=== PATIENT | male | born 1950 | race Caucasian/White ===

== ENCOUNTER 2018-01-10 17:12 | Inpatient (IN) | payer MEDICARE, MEDICAID ==
[2018-01-10] MEDS ORDERED: ACIDOPHILUS LAC1 CAP PO (18:10)
[2018-01-10] MEDS ORDERED: ROCALTROL0.5 MCG PO (18:15)
[2018-01-10] MEDS ORDERED: COMBIVENT RESPIM4 GM INH (18:17)
[2018-01-10] MEDS ORDERED: DILANTIN100 MG PO (18:19)
[2018-01-10] MEDS ORDERED: DILANTIN50 MG PO (18:19)
[2018-01-10] MEDS ORDERED: COLACE100 MG PO (18:21)
[2018-01-10] MEDS ORDERED: KEPPRA250 MG PO (18:24)
[2018-01-10] MEDS ORDERED: LANTUS SOL100 UNIT/1 (18:26)
[2018-01-10] MEDS ORDERED: MIRALAX17 GM PO (18:27)
[2018-01-10] MEDS ORDERED: NORVASC10 MG PO (18:27)
[2018-01-10] MEDS ORDERED: TOPROL XL25 MG PO (18:33)
[2018-01-10] MEDS ORDERED: ULTRAM50 MG PO (18:40)
[2018-01-11] MEDS ORDERED: NOVOLOG100 U/M1 SC (01:08)
[2018-01-30 14:55] VITALS: BMI 22.3
== END 2018-01-10 20:26 | disposition short-term general hospital (02) | DRG 884 ==
LOC: D.PSYCH 17:12
PROVIDERS: Psychiatry & Neurology Psychiatry
DX: F03.90 Unspecified dementia, unspecified severity, without behavioral disturbance, psychotic disturbance, mood disturbance, and anxiety (principal)

== ENCOUNTER 2018-01-10 19:57 | Inpatient (IN) | payer MEDICARE ==
[~2018-01-10] VITALS: Ht 162.6 cm; Wt 63.1 kg
[~2018-01-10 19:57] MED LIST: ACIDOPHILUS LAC1 CAP PO; COLACE100 MG PO; COMBIVENT RESPIM4 GM INH; DILANTIN100 MG PO; DILANTIN50 MG PO; KEPPRA250 MG PO; LANTUS SOL100 UNIT/1; MIRALAX17 GM PO; NORVASC10 MG PO; ROCALTROL0.5 MCG PO; TOPROL XL25 MG PO; ULTRAM50 MG PO
[2018-01-10 20:58] LABS: BASOPHILS 1.7 % (0-2); EOSINOPHILS 1.4 % (0-7); HEMATOCRIT 30.5 % (42.0-54.0); HEMOGLOBIN 9.8 g/dL (13.5-17.5); IMMATURE GRANULOCYTES 0.6 % (0-5); LYMPHOCYTES 40.6 % (15-50); MCH 30.6 pg (26.0-34.0); MCHC 32.1 g/dL (31.0-37.0); MCV 95.3 fL (80.0-100.0); MEAN PLATELET VOLUME 9.5 fL (7.4-10.4); MONOCYTES 10.4 % (2-11); NEUTROPHILS 45.3 % (40-80); RDW 15.5 % (11.5-14.5); WBC 6.6 10x3/uL (4.8-10.8)
[2018-01-10 21:00] LABS: PLATELET COUNT 248 10x3/uL (130-400)
[2018-01-10 21:06] LABS: APTT 28.6 SECONDS (22.8-39.4); INR 1.1 (0.85-1.17); PROTIME 13.8 SECONDS (11.6-15.0)
[2018-01-10 21:07] LABS: D-DIMER-QUANTITATIVE 0.7 ug/mLFEU (0.20-0.54)
[2018-01-10 21:35] LABS: ALBUMIN 3.1 g/dL (3.4-5.0); ALKALINE PHOSPHATASE 158 U/L (46-116); ALT (SGPT) 17 U/L (10-68); BILIRUBIN - TOTAL 0.15 mg/dL (0.2-1.3); CALC OSMOLALITY 317 mosm/kg (275-300); CARBON DIOXIDE 18.6 mmol/L (21.0-32.0); CKMB 0.8 U/L (0.0-3.6); CREATINE KINASE 127 UL (21-232); CREATININE - SERUM 3.7 mg/dL (0.6-1.3); GLUCOSE 178 mg/dL (74-106); MAGNESIUM - SERUM 2.4 mg/dL (1.8-2.4); POTASSIUM - SERUM 4.1 mmol/L (3.5-5.1); PRO BNP 719 pg/mL (0-125); PROTEIN - SERUM 7.5 g/dL (6.4-8.2); SODIUM 152 mmol/L (136-145); UREA NITROGEN 47 mg/dL (7-18); eGFR NON AFRICAN AMERICAN 18 mL/min (90-120)
[2018-01-10 21:36] LABS: TROPONIN-I < 0.017 ng/mL (0.000-0.060)
[2018-01-10 21:38] LABS: CHLORIDE - SERUM 117 mmol/L (98-107)
[2018-01-11] VITALS (20 sets, daily range): BP systolic 115–191; BP diastolic 39–116; BMI 23.4; BMI 23.3
[2018-01-11] MEDS ORDERED: NOVOLOG100 U/M1 SC (01:08)
[2018-01-12] VITALS (24 sets, daily range): BP systolic 121–174; BP diastolic 66–112; Ht 162.6 cm; Wt 63.1 kg
[2018-01-12 06:43] LABS: CALCIUM 8.9 mg/dL (8.5-10.1); CARBON DIOXIDE 17.2 mmol/L (21.0-32.0); CREATININE - SERUM 3.1 mg/dL (0.6-1.3); PHENYTOIN (DILANTIN) 37.1 ug/mL (10.0-20.0); POTASSIUM - SERUM 3.9 mmol/L (3.5-5.1)
[2018-01-12 06:46] LABS: ANION GAP 21.7 mmol/L (8-16)
[2018-01-12 15:43] LABS: ERYTHROCYTE SEDIMENTATION RATE 84 mm/hr (0-20)
[2018-01-13] VITALS (24 sets, daily range): BP systolic 147–194; BP diastolic 70–102
[2018-01-13 07:44] LABS: CREATININE - URINE 88.2 mg/dL (30-125); PRO/CRE RATIO URINE 3.5 mg/g; PROTEIN - URINE 304.7 mg/dL (0.0-11.9)
[2018-01-13 08:12] LABS: APPEARANCE SLT CLOUDY (CLEAR); BACTERIA MODERATE /hpf (NONE SEEN); BILIRUBIN NEGATIVE (NEGATIVE); COLOR YELLOW (YELLOW); EPITHELIAL CELLS OCC /hpf (0-5); GLUCOSE 100 mg/dL (NEGATIVE); GRANULAR CAST 0-5 /lpf (NONE SEEN); HYALINE CAST RARE /lpf (NONE SEEN); KETONE NEGATIVE (NEGATIVE); MUCUS <1+ /lpf (NONE SEEN); NITRITE NEGATIVE (NEGATIVE); PROTEIN 3+ mg/dL (NEGATIVE); SPECIFIC GRAVITY 1.015 (1.005-1.020); UROBILINOGEN NORMAL (NORMAL); WHITE CELLS - URINE 25-50 /hpf (0-5)
[2018-01-13 11:37] LABS: ANION GAP 19.2 mmol/L (8-16); CALCIUM 7.9 mg/dL (8.5-10.1); CARBON DIOXIDE 16.7 mmol/L (21.0-32.0); POTASSIUM - SERUM 3.9 mmol/L (3.5-5.1)
[2018-01-13 11:40] LABS: PHENYTOIN (DILANTIN) 25.4 ug/mL (10.0-20.0)
[2018-01-14] VITALS (20 sets, daily range): BP systolic 117–179; BP diastolic 62–96
[2018-01-14 03:24] LABS: EOSINOPHILS 7.6 % (0-7); HEMATOCRIT 29.9 % (42.0-54.0); HEMOGLOBIN 9.8 g/dL (13.5-17.5); LYMPHOCYTES 36.8 % (15-50); MCHC 32.8 g/dL (31.0-37.0); MCV 91.4 fL (80.0-100.0); MEAN PLATELET VOLUME 9.4 fL (7.4-10.4); MONOCYTES 5.2 % (2-11); NEUTROPHILS 49.4 % (40-80); PLATELET COUNT 221 10x3/uL (130-400); RBC 3.27 10x6/uL (4.20-6.10); RDW 14.3 % (11.5-14.5); WBC 7.7 10x3/uL (4.8-10.8)
[2018-01-14 03:32] LABS: ANION GAP 17.7 mmol/L (8-16); CALCIUM 7.9 mg/dL (8.5-10.1); POTASSIUM - SERUM 3.7 mmol/L (3.5-5.1)
[2018-01-16 07:08] LABS: SPE - A/G RATIO 0.9 (0.7-1.7); SPE - ALBUMIN 3.3 g/dL (2.9-4.4); SPE - ALPHA-1 GLOBULIN 0.2 g/dL (0.0-0.4); SPE - ALPHA-2 GLOBULIN 1.1 g/dL (0.4-1.0); SPE - BETA GLOBULIN 1.4 g/dL (0.7-1.3); SPE - GAMMA GLOBULIN 0.8 g/dL (0.4-1.8); SPE - M-SPIKE Not Observed g/dL (Not Observed); SPE - TOTAL PROTEIN 6.9 g/dL (6.0-8.5)
[2018-01-17 14:21] LABS: UPE RAND - ALBUMIN 75.3 % (()); UPE RAND - ALPHA 1 GLOBULIN 1.2 % (()); UPE RAND - ALPHA 2 GLOBULIN 7.1 % (()); UPE RAND - GAMMA GLOBULIN 9.4 % (())
== END 2018-01-15 02:50 | disposition short-term general hospital (02) | DRG 56 ==
LOC: D.ER 19:57 → D.ICU 23:18 → D.EDHOLD 23:18 → D.ICU 23:54 → D.MS 01-14 18:25
PROVIDERS: Family Medicine; Internal Medicine Nephrology
DX: I69.398 Other sequelae of cerebral infarction (principal); R40.2213 Coma scale, best verbal response, none, at hospital admission; R40.2113 Coma scale, eyes open, never, at hospital admission; R40.2343 Coma scale, best motor response, flexion withdrawal, at hospital admission; N18.4 Chronic kidney disease, stage 4 (severe); E87.0 Hyperosmolality and hypernatremia; F02.81 Dementia in other diseases classified elsewhere, unspecified severity, with behavioral disturbance; N39.0 Urinary tract infection, site not specified; R56.9 Unspecified convulsions; E11.22 Type 2 diabetes mellitus with diabetic chronic kidney disease; I12.9 Hypertensive chronic kidney disease with stage 1 through stage 4 chronic kidney disease, or unspecified chronic kidney disease; Z79.4 Long term (current) use of insulin; G30.9 Alzheimer's disease, unspecified; K21.9 Gastro-esophageal reflux disease without esophagitis; K59.00 Constipation, unspecified

== ENCOUNTER 2018-01-28 20:46 | Inpatient (IN) | payer MEDICARE ==
[~2018-01-28] VITALS: Ht 162.6 cm; Wt 59.0 kg
--- NOTE | ~2018-01-28 | PN ---
PATIENT:AMBROCIO SÁNCHEZ MEDICAL RECORD: [id number] LOCATION:[facility] ADMISSION DATE: 01/28/18 PROGRESS NOTE DATE OF SERVICE: 02/06/2018 SUBJECTIVE: The patient's case was discussed with staff. He has no new complaint. OBJECTIVE: He refused his nighttime medicines last night, but can give me an explanation why. Today, he is calm and cooperative. He has had no more of these bizarre episodes where he becomes unresponsive. ASSESSMENT: No change in diagnoses. PLAN: Current medicines will be maintained. I am going to treat him with a low dose of Klonopin for his anxiety. TRANSINT:[id number] Voice Confirmation ID: [id number] DOCUMENT ID: [id number] JEAN AGUILAR MD at 1325 CC: [id number] DICTATION DATE: 02/06/18 1346 SULPHATE TESTER: 02/06/18 1423 ADM IN [place] [id number] [place] [address]
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
--- NOTE | ~2018-01-28 | PN ---
PATIENT:AMBROCIO SÁNCHEZ MEDICAL RECORD: [id number] LOCATION:[facility] ADMISSION DATE: 01/28/18 PROGRESS NOTE DATE OF SERVICE: 02/07/2018 SUBJECTIVE: The patient's case was discussed with staff. He has no new complaint. OBJECTIVE: The patient is refusing medicines usually at night. This obviously presents a problem with managing his seizure disorder. He is continuing to have these episodic spells, in which he just lays his head down on the table and will not respond. We continue to evaluate and the vital signs are normal. He is resisting passive opening of his eyelids and he is failing the chandelier test. It is clear that this is not something medical or neurologic, but probably unconsciously done and veterans employment representative of a severely disturbed person. ASSESSMENT: No change in diagnoses. PLAN: I am going to stop this patient's oral psychotropic medications as it is impossible to manage them with him not taking them consistently. Instead, I am going to give him a long-acting injection of Haldol Decanoate as a one-time order and will observe any effects that might have. He has not been aggressive and he is not saying bizarre delusional things, but his behavior is clearly bizarre and I think not consistent with anyone who is in contact with reality. TRANSINT:[id number] Voice Confirmation ID: [id number] DOCUMENT ID: [id number] JEAN AGUILAR MD at 1200 CC: [id number] DICTATION DATE: 02/07/18 1343 KICK PRESS SETTER: 02/07/18 1427 [facility] [place] [facility] [address] [id number]
--- NOTE | ~2018-01-28 | PN ---
PATIENT:AMBROCIO SÁNCHEZ MEDICAL RECORD: [id number] LOCATION:[facility] ADMISSION DATE: 01/28/18 PROGRESS NOTE DATE OF SERVICE: 01/30/2018 SUBJECTIVE: The patient's case was discussed with staff. He has no new complaint. OBJECTIVE: The patient denies intent to harm himself or others. He is minimally cooperative, but answers few questions. He was agitated last night and received p.r.n. medications. ASSESSMENT: No change in diagnoses. PLAN: I am going to start the patient on Geodon at a dose of 20 mg twice daily for his psychotic, agitated behavior. He will be monitored for clinical changes associated with its use. His long-term prognosis is guarded. TRANSINT:[id number] Voice Confirmation ID: [id number] DOCUMENT ID: [id number] JEAN AGUILAR MD at 1325 CC: [id number] DICTATION DATE: 01/30/18 1441 AUTO BODY DETAILER: 01/30/18 1651 ADM IN [place] [id number] [place] [id number]
--- NOTE | ~2018-01-28 | PN ---
PATIENT:AMBROCIO SÁNCHEZ MEDICAL RECORD: [id number] LOCATION:[facility] ADMISSION DATE: 01/28/18 PROGRESS NOTE DATE OF SERVICE: 02/01/2018 SUBJECTIVE: No new complaint. OBJECTIVE: Staff reported the patient tends to be nonresponsive except when there is something that he desires such as a meal. No agitation noted in the last 24 hours. On exam, mood is euthymic. Affect very reserved. Speech is terse. Content of thought is negative for overt psychosis for the most part that the patient simply ignores the examiner. Sensorium appears unchanged. ASSESSMENT: No change in diagnoses. PLAN: 1. Maintain current medication. 2. Continue supportive care. TRANSINT:[id number] Voice Confirmation ID: [id number] DOCUMENT ID: [id number] BETSY NAJERA III, MD at 0736 CC: [id number] DICTATION DATE: 02/01/18 1002 WATER TRUCK DRIVER: 02/01/18 1348 ADM IN [facility] [address] [place] [id number]
--- NOTE | ~2018-01-28 | PN ---
PATIENT:AMBROCIO SÁNCHEZ MEDICAL RECORD: [id number] LOCATION:[facility] ADMISSION DATE: 01/28/18 PROGRESS NOTE DATE OF SERVICE: 01/31/2018 SUBJECTIVE: The patient's case was discussed with staff. He has no new complaint. OBJECTIVE: The patient is in good behavioral control. He has poor insight about his condition. He did talk to me today and I was able to get a reasonable history from him. Unfortunately, he is denying a history of psychiatric disease, which I do not think is true. I have reviewed his current medications and as already documented yesterday by others he was very agitated. I am going to start him on a low-dose of Geodon to assist with his agitation. TRANSINT:[id number] Voice Confirmation ID: [id number] DOCUMENT ID: [id number] JEAN AGUILAR MD at 1409 CC: [id number] DICTATION DATE: 01/31/181746 CRYPTOLOGIC TECHNICIAN OPERATOR/ANALYST: 01/31/18 193 ADM IN [facility] [address] [place] [address]
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
--- NOTE | ~2018-01-28 | PN ---
PATIENT:AMBROCIO SÁNCHEZ MEDICAL RECORD: [id number] LOCATION:[facility] ADMISSION DATE: 01/28/18 PROGRESS NOTE DATE OF SERVICE: 02/03/2018 SUBJECTIVE: No new complaint. OBJECTIVE: Staff reports the patient continues to be very attention-seeking. At times, he will lie in the floor. Generally when he is acting out, is not addressed directly, he will discontinue it. On exam, mood more or less euthymic. Affect is very childlike. Speech is terse. Content of thought is focused only on somatic concerns. Sensorium shows no change. ASSESSMENT: No change in diagnosis. PLAN: 1. Maintain current medication. 2. Continue supportive therapy. TRANSINT:[id number] Voice Confirmation ID: [id number] DOCUMENT ID: [id number] BETSY NAJERA III, MD at 0841 CC: [id number] DICTATION DATE: 02/03/18 1036 SUPERVISOR SPINNING: 02/03/18 1116 ADM IN [facility] [address] [place] [address]
--- NOTE | ~2018-01-28 | PN ---
PATIENT:AMBROCIO SÁNCHEZ MEDICAL RECORD: [id number] LOCATION:[facility] ADMISSION DATE: 01/28/18 PROGRESS NOTE DATE OF SERVICE: 02/02/2018 SUBJECTIVE: The patient's case was discussed with staff. He has no new complaint. OBJECTIVE: The patient is continuing to have these very bizarre episodes of clearly malingered catatonia. Today, he wanted to go to his room, and when told that he could not at this time and he had to stay in the dayroom, he calmly squatted down on the floor, then kneeled, then comfortably laid himself on his back and would not move. Once again, vital signs are normal. He resists when you attempt to open his eyes. He fails the chandelier test. The circumstances that he presented in, how he arranged himself, and then the circumstances after lying down are clearly malingering or conversion in nature. ASSESSMENT: No change in diagnoses. PLAN: The patient will be treated with a higher level of Dilantin as his level is subtherapeutic. No seizure activity has been noted if he indeed actually has a real seizure disorder, which I am going to presume he does, but he may well have had some somatic symptoms that were mistaken for a true epilepsy. He is already on Geodon. He has not been aggressive here. I do think that it would not be unreasonable to transition him back to the hospital after the weekend if he continues to not be aggressive. TRANSINT:[id number] Voice Confirmation ID: [id number] DOCUMENT ID: [id number] JEAN AGUILAR MD at 1312 CC: [id number] DICTATION DATE: 02/02/18 1428 AUTOMATION MECHANIC: 02/02/18 1450 ADM IN [facility] [address] [place] [address]
--- NOTE | ~2018-01-28 | PN ---
PATIENT:AMBROCIO SÁNCHEZ MEDICAL RECORD: [id number] LOCATION:[facility] ADMISSION DATE: 01/28/18 PROGRESS NOTE DATE OF SERVICE: 02/09/2018 SUBJECTIVE: The patient's case was discussed with staff. He has no new complaint. OBJECTIVE: The patient is in good behavioral control with limited insight about his condition. He is tolerating his medicines well. ASSESSMENT: No change in diagnoses. PLAN: The patient will be transitioned out of the hospital later today. He will have follow up with his primary care [facility] physician. TRANSINT:[id number] Voice Confirmation ID: [id number] DOCUMENT ID: [id number] JEAN AGUILAR MD at 1406 CC: [id number] DICTATION DATE: 02/09/18 1403 AIRCRAFT INSTRUMENT TESTER: 02/09/18 1415 DIS IN 02/09/18 [id number] [place] [address]
--- NOTE | ~2018-01-28 | PN ---
PATIENT:AMBROCIO SÁNCHEZ MEDICAL RECORD: [id number] LOCATION:[facility] ADMISSION DATE: 01/28/18 PROGRESS NOTE DATE OF SERVICE: 02/08/2018 SUBJECTIVE: The patient's case was discussed with staff. He has no new complaint. OBJECTIVE: The patient is in good behavioral control with poor insight about his condition. He tolerates his medicines well. ASSESSMENT: No change in diagnoses. PLAN: Current medicines and therapies have been reviewed and will be maintained. The patient is not acutely dangerous. He is profoundly emotionally disturbed and whenever he is unhappy or distressed he becomes catatonic. At this point, I am just going to release him from inpatient care since he is not dangerous and he is not a good therapy candidate. He is profoundly disturbed and I do not think that is likely to improve. TRANSINT:[id number] Voice Confirmation ID: [id number] DOCUMENT ID: [id number] JEAN AGUILAR MD at 1343 CC: [id number] DICTATION DATE: 02/08/18 1207 MARKETING AMBASSADOR: 02/08/18 1357 ADM IN [facility] [address] [place] [address]
[~2018-01-28 20:46] MED LIST changes: +NOVOLOG100 U/M1 SC
[2018-01-28] MEDS ORDERED: DILANTIN100 MG PO ×2 (21:50→21:51)
[2018-01-28] MEDS ORDERED: KEPPRA750 MG PO (21:52)
[2018-01-29 03:45] VITALS: BP 187/93
[2018-01-29 07:00] VITALS: BP 160/87
[2018-01-29 09:59] LABS: BASOPHILS 0.5 % (0-2); EOSINOPHILS 4.9 % (0-7); HEMATOCRIT 26.9 % (42.0-54.0); HEMOGLOBIN 8.9 g/dL (13.5-17.5); IMMATURE GRANULOCYTES 0.2 % (0-5); LYMPHOCYTES 27.4 % (15-50); MCH 30.2 pg (26.0-34.0); MCHC 33.1 g/dL (31.0-37.0); MCV 91.2 fL (80.0-100.0); MEAN PLATELET VOLUME 9.2 fL (7.4-10.4); MONOCYTES 5.7 % (2-11); NEUTROPHILS 61.3 % (40-80); RBC 2.95 10x6/uL (4.20-6.10); RDW 14.5 % (11.5-14.5); WBC 9.3 10x3/uL (4.8-10.8)
[2018-01-29 10:16] LABS: PLATELET COUNT 339 10x3/uL (130-400)
[2018-01-29 10:39] LABS: ANION GAP 16.4 mmol/L (8-16); BILIRUBIN - TOTAL 0.1 mg/dL (0.2-1.3); CALCIUM 8.8 mg/dL (8.5-10.1); CARBON DIOXIDE 18.9 mmol/L (21.0-32.0); CHOL - HDL RATIO 4.4 ratio (2.3-4.9); CREATININE - SERUM 3.3 mg/dL (0.6-1.3); LDL-HDL RATIO 2.5 ratio (1.5-3.5); PHENYTOIN (DILANTIN) 8.7 ug/mL (10.0-20.0); POTASSIUM - SERUM 4.3 mmol/L (3.5-5.1); PROTEIN - SERUM 6.7 g/dL (6.4-8.2); THYROID STIMULATING HORMONE 1.1 uIU/mL (0.36-3.74)
[2018-01-29 20:25] VITALS: BP 185/81
[2018-01-30 08:30] VITALS: BP 179/82
[2018-01-30 08:46] VITALS: BMI 22.3
[2018-01-30 12:40] VITALS: BMI 22.3
[2018-01-30 14:55] VITALS: Ht 162.6 cm; Wt 59.0 kg
[2018-01-30 15:41] LABS: BASOPHILS 0.9 % (0-2); EOSINOPHILS 4.9 % (0-7); IMMATURE GRANULOCYTES 0.2 % (0-5); LYMPHOCYTES 36.5 % (15-50); MCH 30.1 pg (26.0-34.0); MEAN PLATELET VOLUME 9.5 fL (7.4-10.4); MONOCYTES 7.5 % (2-11); PLATELET COUNT 296 10x3/uL (130-400); RDW 14.5 % (11.5-14.5)
[2018-01-30 15:48] LABS: HEMATOCRIT 33.4 % (42.0-54.0); HEMOGLOBIN 10.7 g/dL (13.5-17.5); MCV 94.1 fL (80.0-100.0); RBC 3.55 10x6/uL (4.20-6.10); WBC 6.6 10x3/uL (4.8-10.8)
[2018-01-30 16:02] LABS: % SATURATION 26 % (15-55); IRON 71 ug/dl (35-150); TOTAL IRON BIND CAPACITY 269 ug/dl (260-445); UNSAT IRON BIND CAPACITY 198 ug/dl (150-375)
[2018-01-30 16:13] LABS: ALBUMIN 3.5 g/dL (3.4-5.0); BILIRUBIN - TOTAL 0.17 mg/dL (0.2-1.3); CALCIUM 8.9 mg/dL (8.5-10.1); CARBON DIOXIDE 20.9 mmol/L (21.0-32.0); CREATININE - SERUM 3.5 mg/dL (0.6-1.3); PROTEIN - SERUM 7.9 g/dL (6.4-8.2)
[2018-01-30 16:14] LABS: ANION GAP 19.1 mmol/L (8-16)
[2018-01-30 21:02] VITALS: BP 145/58
[2018-01-31 07:28] LABS: RAPID PLASMA REAGIN Non Reactive (Non Reactive)
[2018-01-31 08:21] LABS: FOLATE (FOLIC ACID) - SERUM 16.7 ng/mL (>3.0); VITAMIN D 25 HYDROXY 11.4 ng/mL (30.0-100.0)
[2018-01-31 20:19] VITALS: BP 133/58
[2018-02-01 07:59] VITALS: BP 164/91
[2018-02-01 08:24] LABS: ANION GAP 21.5 mmol/L (8-16); CALCIUM 8.8 mg/dL (8.5-10.1); CARBON DIOXIDE 17.8 mmol/L (21.0-32.0); CREATININE - SERUM 4.1 mg/dL (0.6-1.3); POTASSIUM - SERUM 4.3 mmol/L (3.5-5.1)
[2018-02-02 07:26] LABS: ANION GAP 17.9 mmol/L (8-16); CALCIUM 8.2 mg/dL (8.5-10.1); PHENYTOIN (DILANTIN) 6.2 ug/mL (10.0-20.0); POTASSIUM - SERUM 3.9 mmol/L (3.5-5.1)
[2018-02-02 08:22] VITALS: BP 130/78
[2018-02-02 19:54] VITALS: BP 170/91
[2018-02-02 22:14] LABS: APPEARANCE CLOUDY (CLEAR); BILIRUBIN NEGATIVE (NEGATIVE); COLOR YELLOW (YELLOW); GLUCOSE 50 mg/dL (NEGATIVE); KETONE NEGATIVE (NEGATIVE); NITRITE NEGATIVE (NEGATIVE); PROTEIN 2+ mg/dL (NEGATIVE); UROBILINOGEN NORMAL (NORMAL)
[2018-02-02 22:15] LABS: BACTERIA MANY /hpf (NONE SEEN); RED CELLS - URINE 0-5 /hpf (0-5); WHITE CELLS - URINE 0-5 /hpf (0-5)
[2018-02-03 07:38] LABS: ANION GAP 17.5 mmol/L (8-16); CALCIUM 8.6 mg/dL (8.5-10.1); CARBON DIOXIDE 18.7 mmol/L (21.0-32.0); PHENYTOIN (DILANTIN) 7.9 ug/mL (10.0-20.0); POTASSIUM - SERUM 4.2 mmol/L (3.5-5.1)
[2018-02-03 08:02] VITALS: BP 148/70
[2018-02-04 08:25] LABS: ANION GAP 17.8 mmol/L (8-16); CALCIUM 8.7 mg/dL (8.5-10.1); CARBON DIOXIDE 19.7 mmol/L (21.0-32.0); PHENYTOIN (DILANTIN) 8.8 ug/mL (10.0-20.0); POTASSIUM - SERUM 4.5 mmol/L (3.5-5.1)
[2018-02-04 09:26] VITALS: BP 165/75
[2018-02-04 20:50] VITALS: BP 166/78
[2018-02-05 07:56] VITALS: BP 90/59
[2018-02-05 19:47] VITALS: BP 180/92
[2018-02-06 07:00] VITALS: BP 183/92
[2018-02-06 19:46] VITALS: BP 140/86
[2018-02-07 08:21] LABS: ANION GAP 22.2 mmol/L (8-16); CALCIUM 8.6 mg/dL (8.5-10.1); CARBON DIOXIDE 14.7 mmol/L (21.0-32.0); CREATININE - SERUM 4.2 mg/dL (0.6-1.3); POTASSIUM - SERUM 4.9 mmol/L (3.5-5.1)
[2018-02-07 09:24] VITALS: BP 168/81
[2018-02-07 19:21] VITALS: BP 147/81
[2018-02-08 08:01] VITALS: BP 139/65
[2018-02-08] MEDS ORDERED: AMOXICILLIN500 M1 PO (12:09)
[2018-02-08] MEDS ORDERED: DILANTIN100 MG PO (12:10)
[2018-02-08] MEDS ORDERED: FLORAJEN3 CAPS460 MG PO (12:11)
[2018-02-08 20:17] VITALS: BP 155/83
[2018-02-09 09:57] VITALS: BP 150/90
== END 2018-02-09 17:25 | DRG 57 ==
LOC: D.PSYCH 20:46
PROVIDERS: Family Medicine; Internal Medicine Nephrology; Psychiatry & Neurology Psychiatry
DX: I69.318 Other symptoms and signs involving cognitive functions following cerebral infarction (principal); F01.51 Vascular dementia, unspecified severity, with behavioral disturbance; N39.0 Urinary tract infection, site not specified; N18.4 Chronic kidney disease, stage 4 (severe); I69.398 Other sequelae of cerebral infarction; G40.909 Epilepsy, unspecified, not intractable, without status epilepticus; K59.09 Other constipation; B95.2 Enterococcus as the cause of diseases classified elsewhere; J44.9 Chronic obstructive pulmonary disease, unspecified; E78.5 Hyperlipidemia, unspecified; K21.9 Gastro-esophageal reflux disease without esophagitis; D63.1 Anemia in chronic kidney disease; E55.9 Vitamin D deficiency, unspecified; F41.9 Anxiety disorder, unspecified; I12.9 Hypertensive chronic kidney disease with stage 1 through stage 4 chronic kidney disease, or unspecified chronic kidney disease; E11.22 Type 2 diabetes mellitus with diabetic chronic kidney disease